=== PATIENT | male | born 1960 | race Caucasian/White ===

== ENCOUNTER 2017-09-06 20:34 | Emergency (ER) | payer BC ==
[2017-09-06 20:47] VITALS: BP 137/79
--- NOTE | 2017-09-06 20:53 | UC ---
Throat Pain/Nasal Zana HPI - HPI Summary HPI Summary: 57 yo male presents with dry cough for the last 3 weeks that has progressed into sinus pain/pressure/congestion over the last 3 days. He tells me that once or twice a year he will get bronchitis and he usually manages this with OTC remedies as well as cough syrup from his PCP with a zpak sometimes. Recently he has been trying to do just the cough syrup and sudafed for his cough, but it is not helping. Over the last 3 days has developed increasing sinus pain and pressure as well. Denies fever, chills, SOB, chest pain. - History of Current Complaint Chief Complaint: UCRespiratory Stated Complaint: SINUS PAIN Time Seen by Provider: 09/06/17 20:52 Hx Obtained From: Patient Onset/Duration: Gradual Onset Severity: Mild Pain Intensity: 2 Pain Scale Used: 0-10 Numeric Cough: Nonproductive - Allergies/Home Medications Allergies/Adverse Reactions: Allergies Allergy/AdvReac Type Severity Reaction Status Date / Time No Known Allergies Allergy Verified 09/06/17 20:47 Home Medications: Home Medications Aspirin 81 mg CHEW TAB* 81 mg PO DAILY 09/06/17 [History Confirmed 09/06/17] Canagliflozin (NF) [Invokana (NF)] 300 mg PO DAILY 09/06/17 [History Confirmed 09/06/17] Effexor ER (NF) 150 mg PO DAILY 09/06/17 [History Confirmed 09/06/17] Ferrous Sulfate TAB* 65 mg PO DAILY 09/06/17 [History Confirmed 09/06/17] Glimepiride 1 mg PO DAILY 09/06/17 [History Confirmed 09/06/17] Lisinopril TAB* [Prinivil TAB*] 20 mg PO DAILY 09/06/17 [History Confirmed 09/06] Lometa-3 Fatty Acids/Fish Oil [Fish Oil 1200 mg] 1 cap PO DAILY 09/06/17 [ History Confirmed 09/06/17] Rosuvastatin Calcium [Crestor] 5 mg PO DAILY 09/06/17 [History Confirmed ] Sitagliptin Phos/Metformin HCl [Janumet Xr] 1 tab PO DAILY 09/06/17 [History Confirmed 09/06/17] PMH/Surg Hx/FS Hx/Imm Hx Endocrine History: Diabetes, Dyslipidemia Cardiovascular History: Hypertension - Surgical History Surgical History: None - Family History Known Family History: Positive: Hypertension, Diabetes - Social History Occupation: Employed Full-time Lives: With Family Alcohol Use: Occasionally Substance Use Type: None Smoking Status (MU): Never Smoked Tobacco Review of Systems Constitutional: Negative Skin: Negative Eyes: Negative ENT: Nasal Discharge, Sinus Congestion, Sinus Pain/Tenderness Respiratory: Cough Cardiovascular: Negative Gastrointestinal: Negative Neurovascular: Negative Neurological: Negative Psychological: Negative All Other Systems Reviewed And Are Negative: Yes Physical Exam - Summary Physical Exam Summary: GENERAL: NAD. WDWN. No pain distress. SKIN: No rashes, sores, lesions, or open wounds. HEENT: Head: AT/NC Eyes: EOM intact. Conjunctiva clear without inflammation or discharge. Ears: Hearing grossly normal. TMs intact, no bulging, erythema, or edema. Nose: Nasal mucosa mildly swollen and erythematous with yellow/ clear discharge. TTP frontal sinus. Throat: Posterior oropharynx without exudates, erythema, or tonsillar enlargement. Uvula midline. NECK: Supple. Nontender. No lymphadenopathy. CHEST: CTAB. No r/r/w. No accessory muscle use. Breathing comfortably and in no distress. CV: RRR. Without m/r/g. Pulses intact. Brisk cap refill. NEURO: Alert. CN II-XII grossly intact. PSYCH: Age appropriate behavior. Triage Information Reviewed: Yes Vital Signs: Initial Vital Signs Temp 98.2 F 09/06/17 20:41 Pulse 96 09/06/17 20:41 Resp 16 09/06/17 20:41 BP 137/79 09/06/17 20:41 Pulse Ox 97 09/06/17 20:41 Throat Pain/Nasal Course/Dx - Course Course Of Treatment: Sinusitis. Bronchitis - Differential Dx/Diagnosis Provider Diagnoses: Sinusitis. Bronchitis Discharge - Sign-Out/Discharge Documenting (check all that apply): Discharge/Admit/Transfer - Discharge Plan Condition: Stable Disposition: HOME Prescriptions: Amoxicillin/Clavulanate TAB* [Augmentin TAB 875*] 875 mg PO BID #20 tab predniSONE TAB* [Deltasone TAB*] 50 mg PO DAILY #5 tab Patient Education Materials: Sinusitis (ED) Referrals: No Primary Care Phys,NOPCP [Primary Care Provider] - Additional Instructions: If you develop a fever, shortness of breath, chest pain, new or worsening symptoms - please call your PCP or go to the ED. - Billing Disposition and Condition Condition: STABLE Disposition: Home
[2017-09-06] MEDS ORDERED: Amoxicillin/Clavulanate TAB* 875 MG PO ONE (21:04)
== END 2017-09-06 21:20 | disposition home or self-care (01) ==
LOC: UCEAST 20:34
DX: J40 Bronchitis, not specified as acute or chronic (principal); J32.9 Chronic sinusitis, unspecified; E11.9 Type 2 diabetes mellitus without complications; I10 Essential (primary) hypertension; E78.5 Hyperlipidemia, unspecified; Z79.82 Long term (current) use of aspirin; Z79.899 Other long term (current) drug therapy
CPT/HCPCS: 99202; A9270-GY; G0463